=== PATIENT | male | born 1990 | race Caucasian/White ===

== ENCOUNTER → 2022-02-15 17:41 | Outpatient (CLI) | payer OTHER, SELFPAY ==
--- NOTE | 2022-02-15 | DI.MRI.S_ITS ---
PROCEDURE: MR LUMBAR SPINE WO CON INDICATIONS: Polyneuropathy, unspecified TECHNIQUE: Noncontrast sagittal T1 spin echo and T2 fast echo, sagittal STIR, and T2 fast spin echo through the lumbar spine. In cases with scoliosis, additional coronal T2 fast spin echo may be performed. COMPARISON: None. FINDINGS: Image quality: Excellent. Alignment and Curvature: Grade 1 retrolisthesis present at L5-S1 Bone Marrow: Reactive Modic type 1 degenerative endplate changes noted at L4-5 Spinal Cord: Conus medullaris terminates at the L1 level. Visualized cord demonstrates normal signal and size. Paraspinous Soft Tissues: No paravertebral masses. T12-L1: Disc height is preserved. No central or foraminal stenosis. L1-L2: No central or foraminal stenosis. L2-L3: Disc height is preserved. Circumferential disc bulge results in mild central stenosis. No foraminal stenosis. L3-L4: Disc height is preserved. Circumferential disc bulge and mild hypertrophic facet joints present. Mild central stenosis. No foraminal stenosis. L4-L5: Disc height loss and circumferential disc bulge results in mild central stenosis. Moderate right and left foraminal stenosis present. L5-S1: Disc height loss and circumferential disc bulge present without central stenosis. Moderate bilateral foraminal stenosis noted. IMPRESSION: 1. Multilevel degenerative disc disease and arthropathy results in varying degrees of central and foraminal stenosis including moderate right foraminal stenosis at L4-5 and moderate bilateral foraminal stenosis at L5-S1 Approved by: Geoff Diaz M.D. on 02/17/2022 at 19:58
== END ==
PROVIDERS: Referring Provider Student in an Organized Health Care Education/Training Program; Visit Provider Student in an Organized Health Care Education/Training Program
DX: G62.9 Polyneuropathy, unspecified (principal); M51.36 Other intervertebral disc degeneration, lumbar region; M48.061 Spinal stenosis, lumbar region without neurogenic claudication; M47.816 Spondylosis without myelopathy or radiculopathy, lumbar region
CPT/HCPCS: 72148